=== PATIENT | female | born 1940 | race Caucasian/White ===

== ENCOUNTER 2018-05-07 08:11 | Emergency (ER) | payer MEDICARE ==
[~2018-05-07 08:11] MED LIST: ATROPINE SULFATE 0.1 MG/ML 10ML SYRINGE ONE; EPINEPHrine 10 ML SYRINGE (0.1 MG/ML) ONE; SODIUM BICARB 8.4% 50 ML SYR (1 MEQ/ML) ONE
[2018-05-07] MEDS ORDERED: ceFAZolin 1,000 MG in DEXTROSE/WATER 1 50ML.BAG IVPB STA (08:43)
[2018-05-07 08:49] LABS: ABG Base Excess -24.6 mmol/L; ABG Oxygen Saturation 91.4 % (94-97); ABG PCO2 70 mmHg (35-45); ABG PO2 120 mmHg (83-108); ABG TCO2 12 mmol/L (19-24)
[2018-05-07 09:15] LABS: ABG HCO3 10 mmol/L (21-25); ABG PH <7.00 (7.35-7.45)
--- NOTE | 2018-05-07 09:36 | ED ---
General Adult HPI - General Chief complaint: Cardiac Arrest/CPR Stated complaint: Cardiac Arrest Time Seen by Provider: 05/07/18 08:11 Source: EMS, RN notes reviewed Mode of arrival: EMS - History of Present Illness Initial comments: This is a 78-year-old female presents emergency Department via EMS. They were called to the scene and initially for difficulty breathing however in transport the patient's heart rate started to bradycardia down and eventually went to asystole. EMS started CPR however they did not get an airway and he did not get a line some no meds were given. They did CPR approximately 10-12 minutes prior to arrival. Patient remained asystole throughout that time. Patient arrived in asystole. According to family patient did complain of some chest pain yesterday but he did not follow up with anybody. After the episode of chest pain yesterday she seemed to be fine and acting fine. According to family though she would not tell them her symptoms usually. Patient started having difficulty breathing approximately 15 minutes prior to the ambulance call. No other history is available at this time. Review of Systems ROS Statement: Those systems with pertinent positive or pertinent negative responses have been documented in the HPI. ROS Other: All systems not noted in ROS Statement are negative. Past Medical History Past Medical History: Unable to Obtain History of Any Multi-Drug Resistant Organisms: Unobtainable Past Surgical History: Unable to Obtain Past Psychological History: Unable to Obtain Smoking Status: Unknown if ever smoked Past Alcohol Use History: Unable to Obtain Past Drug Use History: Unable to Obtain General Exam - General Exam Comments Initial Comments: GENERAL: Patient is well-developed and well-nourished. Patient is cyanotic from the neck up ENT: Neck is soft and supple. EYES: The sclera were anicteric and conjunctiva were pink and moist. Extraocular movements were intact and pupils were equal round and reactive to light. Eyelids were unremarkable. PULMONARY: Patient is apneic CARDIOVASCULAR: Patient has no heart sounds and no pulses. ABDOMEN: Abdomen is nondistended SKIN: Skin is clear with no lesions or rashes and otherwise unremarkable. NEUROLOGIC: Patient is unresponsive MUSCULOSKELETAL: Patient is not moving any extremities PSYCHIATRIC: Unable to assess Procedures - Intubation Laryngoscope: Fofana Size: 3 ET Tube Uncuffed: Yes Tube Secured Location: teeth Tube Placement Confirmation: visualized tube passing through cords, equal breath sounds bilaterally, no breath sounds over epigastrium, confirmation by capnometry Patient Tolerated Procedure: well Intubation Complications: none Medical Decision Making - Medical Decision Making Please see the nurse's note for medications and timing of CPR. I intubated the patient upon arrival. I placed a central line and gave the patient multiple doses of epinephrine gave the patient a couple amps of bicarb and gave the patient an amp of atropine. We did get pulses back couple of occasions however it was short lived. After approximately 40+ minutes of mostly CPR we did pronounce the patient at 852. Patient was down for approximately one hour. PH and the ABG was 6.7 I spoke with Moira Hi. - Lab Data Lab Results 05/07/18 Range/Units 08:43 Sample Site RT RADIAL ABG pH <7.00 L* (7.35-7.45) ABG pCO2 70 H (35-45) mmHg ABG pO2 120 H (83-108) mmHg ABG HCO3 10 L* (21-25) mmol/L ABG Total CO2 12 L (19-24) mmol/L ABG O2 Saturation 91.4 L (94-97) % ABG Base Excess -24.6 mmol/L José Test Yes FiO2 100 % Critical Care Time Critical Care Time: Yes Total Critical Care Time: 50 Disposition Clinical Impression: Cardiac arrest Disposition: Referrals: Calvin Meza DO [Primary Care Provider] - 1-2 days Preliminary Cause of : Cardiac arrest
[2018-05-07] MEDS ORDERED: NOREPINEPHRINE 1 MG/ML 4 ML VIAL IV ONE (11:14)
[2018-05-07] MEDS ORDERED: SODIUM CHLORIDE 0.9% 250 ML BAG ONE (11:14)
== END 2018-05-07 12:13 | disposition expired ==
LOC: EC 08:11
DX: I46.9 Cardiac arrest, cause unspecified (principal)
CPT/HCPCS: 31500; 36556; 36600; 82805; 92950; 94002; 99291